=== PATIENT | male | born 1995 | race Caucasian/White ===

== ENCOUNTER 2023-09-08 17:01 | Inpatient (IN) ==
[2023-09-08] MEDS ORDERED: Al Hydrox/Mg Hydrox/Simet LIQ 30 ML UDC PO PRN (22:36)
[2023-09-08] MEDS ORDERED: ESTRADIOL VALERATE 200 MG/5 ML IM SCH (23:00)
[2023-09-09] MEDS ORDERED: ESTRADIOL VALERATE 200 MG/5 ML IM SCH (09:00)
[2023-09-09] MEDS: Vitamin THERAPEUTIC TAB PO SCH (09:31)
[2023-09-09] MEDS: PROGESTERONE 100 MG PO SCH (21:02)
[2023-09-10] MEDS: Vitamin THERAPEUTIC TAB PO SCH (08:55)
[2023-09-10] MEDS: PROGESTERONE 100 MG PO SCH (22:18)
[2023-09-11 09:07] LABS: ABS Basophils 0.1 10^3/uL (0.0-0.1); ABS Eosinophils 0.8 10^3/uL (0.0-0.5); ABS Lymphocytes 2.8 10^3/uL (1.0-4.8); ABS Monocytes 0.7 10^3/uL (0.0-1.1); ABS Neutrophils 5.3 10^3/uL (1.5-7.6); ABS Nucleated RBC 0.01 10^3/ul; Eosinophil % 7.9 %; Hematocrit 41.3 % (38-53); Lymphocyte % 28.7 %; Mean Corpuscular Hemoglobin 29.9 pg (27-33); Mean Corpuscular Volume 87.9 fL (80-97); Mean Platelet Volume 9.5 fL (7.5-11.2); Nucleated Red Blood Cells % 0.1 %/100WBC (0.0-0.8); Platelet Count 294 10^3/uL (150-450); Red Cell Distribution Width 12.9 % (12-17); White Blood Count 9.7 10^3/uL (3.6-10.2)
[2023-09-11 09:22] LABS: Albumin 4.6 g/dL (3.2-5.2); Albumin/Globulin Ratio 1.5 (1-3); Calcium 9.6 mg/dL (8.6-10.3); Creatinine, Serum 0.89 mg/dL (0.67-1.17); Total Bilirubin 0.6 mg/dL (0.2-1.0); Total Protein 7.6 g/dL (6.4-8.9); eGFR CKD-EPI 118.2 (>60)
[2023-09-11] MEDS: Vitamin THERAPEUTIC TAB PO SCH (11:08)
[2023-09-11] MEDS: PROGESTERONE 100 MG PO SCH (21:17)
[2023-09-12] MEDS: Vitamin THERAPEUTIC TAB PO SCH (08:42)
[2023-09-12] MEDS ORDERED: CMCS:Lactase Enzyme (NF) 3,000 UNIT TAB PO PRN (17:52)
[2023-09-12] MEDS: PROGESTERONE 100 MG PO SCH (21:22)
[2023-09-13] MEDS: Vitamin THERAPEUTIC TAB PO SCH (09:56)
== END 2023-09-13 14:59 | disposition home or self-care (01) | DRG 882 ==
LOC: ED 17:01 → BSU 22:26 → ED 22:42
PROVIDERS: ADMIT Psychiatry & Neurology Psychiatry; ATTEND Student in an Organized Health Care Education/Training Program